=== PATIENT | female | born 1990 | race Caucasian/White ===

== ENCOUNTER 2023-05-06 07:45 | Inpatient (IN) | payer BC ==
[2023-05-06] MEDS: ELECTROLYTE-148 SOLN 1,000 ML IV SCH ×2 (08:30→13:33)
[2023-05-06] MEDS ORDERED: CITRIC ACID/SODIUM CITRATE 30 ML UNIT-DOSE CUP PO ONE (08:52)
[2023-05-06 09:31] VITALS: BMI 36.6
[2023-05-06] MEDS ORDERED: morphine SULFATE/PF 1 MG/2 ML (2cc Syringe - QUVA) ONE (16:00)
[2023-05-06] MEDS ORDERED: FENTANYL CITRATE/PF 50 MCG/ML VIAL ONE (16:00)
[2023-05-06] MEDS ORDERED: OXYTOCIN 10 UNITS/ML VIAL ONE (16:00)
[2023-05-06] MEDS ORDERED: PHENYLEPHRINE HCL 10 MG/1 ML SINGLE DOSE VIAL ONE (16:00)
[2023-05-06] MEDS ORDERED: ONDANSETRON 4 MG/2 ML VIAL ONE (16:00)
[2023-05-06] MEDS ORDERED: ceFAZolin SODIUM 1 GM VIAL ONE (16:00)
[2023-05-06] MEDS ORDERED: KETOROLAC TROMETHAMINE 30 MG/1 ML VIAL ONE (16:00)
[2023-05-06 17:31] LABS: CORD BASE EXCESS -1.4 mmol/L (0-2); CORD HCO3 23.2 mmHg (20-29); CORD PCO2 38.5 mmHg (30-78); CORD pH 7.397 (7.14-7.44)
[2023-05-06] MEDS ORDERED: METHYLERGONOVINE MALEATE 0.2 MG/1 ML AMP IM PRN (17:31)
[2023-05-06] MEDS ORDERED: ACETAMINOPHEN 325 MG TABLET (FP) PO PRN (17:31)
[2023-05-06] MEDS ORDERED: IBUPROFEN 800 MG/8 ML IJ IVPB PRN (17:32)
[2023-05-06 17:38] LABS: CORD HCO3 23.3 mmHg (20-29); CORD PCO2 44.2 mmHg (30-78)
[2023-05-06] MEDS ORDERED: CEFAZOLIN SODIUM 2 GM in DEXTROSE 5%-WATER 100 ML IVPB SCH (18:00)
[2023-05-06] MEDS ORDERED: ceFAZolin 2 GRAM PREMIX BAG IVPB SCH (18:00)
[2023-05-06] MEDS ORDERED: OXYTOCIN 20 UNITS in 0.9% NS 20 UNIT/1,000 ML INFUS.BAG IV ONE (18:26)
[2023-05-06] MEDS: OXYTOCIN 20 UNITS in 0.9% NS 20 UNIT/1,000 ML INFUS.BAG IV SCH (18:44)
[2023-05-06 19:16] VITALS: RESP 18
[2023-05-06] MEDS: SENNOSIDES 8.6MG TABLET (FP) PO SCH (22:39)
[2023-05-07] MEDS: CEFAZOLIN SODIUM 2 GM in DEXTROSE 5%-WATER 100 ML IVPB SCH ×3 (00:35→15:33)
[2023-05-07] MEDS: OXYTOCIN 20 UNITS in 0.9% NS 20 UNIT/1,000 ML INFUS.BAG IV SCH (04:42)
[2023-05-07] MEDS ORDERED: oxyCODONE HCL 5 MG TABLET PO PRN ×2 (05:31)
[2023-05-07 08:06] LABS: BASO % 0.4 % (0-2.0); EOS % 1.3 % (0-4.5); HEMATOCRIT 31.9 % (32.4-45.2); HEMOGLOBIN 10.6 GM/dL (10.7-15.3); LYMPH % 10.4 % (8-40); MCH 28.2 pg (25.7-33.7); MCHC 33.2 g/dl (32.0-36.0); MEAN CELL VOLUME 84.8 fl (80-96); MEAN PLT VOLUME 8.6 fl (7.5-11.1); MONO % 7.3 % (3.8-10.2); NEUT % 80.6 % (42.8-82.8); PLATELET COUNT 174 10^3/uL (134-434); RBC 3.76 M/mm3 (3.60-5.2); RDW 13.7 % (11.6-15.6); WHITE BLOOD COUNT 9.6 K/mm3 (4.0-10.0)
[2023-05-07] MEDS: IBUPROFEN 600 MG TABLET (FP) PO PRN ×3 (09:39→20:39)
[2023-05-07] MEDS: ENOXAPARIN NA (PORCINE) 40 MG/0.4 ML DISP.SYRIN SQ SCH (09:39)
[2023-05-07] MEDS: SIMETHICONE 80 MG TAB.CHEW (FP) PO PRN ×3 (09:40→20:39)
[2023-05-07] MEDS: SENNOSIDES 8.6MG TABLET (FP) PO SCH ×2 (09:40→21:46)
[2023-05-07] MEDS ORDERED: LEVOTHYROXINE NA 50 MCG TABLET (FP) PO SCH (10:00)
[2023-05-07] MEDS ORDERED: BISACODYL 10 MG SUPP.RECT RC PRN (17:31)
[2023-05-08] MEDS: SIMETHICONE 80 MG TAB.CHEW (FP) PO PRN ×4 (05:09→22:00)
[2023-05-08] MEDS: IBUPROFEN 600 MG TABLET (FP) PO PRN ×4 (05:09→21:59)
[2023-05-08] MEDS: LEVOTHYROXINE NA 25 MCG TABLET (FP) PO SCH (06:03)
[2023-05-08] MEDS ORDERED: LEVOTHYROXINE NA 50 MCG TABLET (FP) PO SCH (07:00)
[2023-05-08] MEDS: SENNOSIDES 8.6MG TABLET (FP) PO SCH ×2 (11:03→21:59)
[2023-05-08] MEDS: ENOXAPARIN NA (PORCINE) 40 MG/0.4 ML DISP.SYRIN SQ SCH (11:04)
[2023-05-09] MEDS: LEVOTHYROXINE NA 25 MCG TABLET (FP) PO SCH (06:22)
[2023-05-09] MEDS: IBUPROFEN 600 MG TABLET (FP) PO PRN ×2 (06:22→12:00)
[2023-05-09 07:43] LABS: BASO % 0.7 % (0-2.0); EOS % 5.6 % (0-4.5); HEMATOCRIT 30.9 % (32.4-45.2); HEMOGLOBIN 10.3 GM/dL (10.7-15.3); LYMPH % 23.9 % (8-40); MCHC 33.2 g/dl (32.0-36.0); MEAN CELL VOLUME 84.4 fl (80-96); MEAN PLT VOLUME 8.6 fl (7.5-11.1); MONO % 7.2 % (3.8-10.2); NEUT % 62.6 % (42.8-82.8); PLATELET COUNT 198 10^3/uL (134-434); RBC 3.66 M/mm3 (3.60-5.2); RDW 13.9 % (11.6-15.6); WHITE BLOOD COUNT 6.8 K/mm3 (4.0-10.0)
[2023-05-09] MEDS: ENOXAPARIN NA (PORCINE) 40 MG/0.4 ML DISP.SYRIN SQ SCH (10:52)
[2023-05-09] MEDS: SENNOSIDES 8.6MG TABLET (FP) PO SCH (10:52)
[2023-05-09 11:01] VITALS: BP 106/72; PULSE 71; TEMP 98.6
[2023-05-10] MEDS ORDERED: LEVOTHYROXINE NA 50 MCG TABLET (FP) PO SCH (07:00)
== END 2023-05-09 13:10 | disposition home or self-care (01) | DRG 787 ==
LOC: JLDR 07:45 → J3W 19:30
PROVIDERS: ADMIT Obstetrics & Gynecology; ATTEND Obstetrics & Gynecology
PROC: 10D00Z1 Extraction of Products of Conception, Low, Open Approach (ICD-10-PCS; principal; 2023-05-06)
PROC: 3E0334Z Introduction of Serum, Toxoid and Vaccine into Peripheral Vein, Percutaneous Approach (ICD-10-PCS; 2023-05-07)
DX: O34.211 Maternal care for low transverse scar from previous cesarean delivery (principal); O36.0930 Maternal care for other rhesus isoimmunization, third trimester, not applicable or unspecified; N85.8 Other specified noninflammatory disorders of uterus; O99.214 Obesity complicating childbirth; O42.92 Full-term premature rupture of membranes, unspecified as to length of time between rupture and onset of labor; O99.284 Endocrine, nutritional and metabolic diseases complicating childbirth; Z3A.39 39 weeks gestation of pregnancy; Z37.0 Single live birth
CPT/HCPCS: 36415; 36600; 82803; 85025; 85461; 88307-TC; 94010; J2790